=== PATIENT | female | born 1955 | race Caucasian/White ===

== ENCOUNTER → 2023-11-06 11:03 | Outpatient (REF) | payer MEDICARE, BC, SELFPAY | LOC: MRI 3T 11:03 | PROVIDERS: ATTENDING PHYSICIAN Radiology Radiation Oncology; FAMILY PHYSICIAN Family Medicine; OTHER PHYSICIAN Radiology Radiation Oncology | DX: C79.31 Secondary malignant neoplasm of brain (principal); C79.49 Secondary malignant neoplasm of other parts of nervous system | CPT/HCPCS: 70553; A9575 ==

== ENCOUNTER → 2023-11-24 12:49 | Outpatient (REF) | payer MEDICARE, BC, SELFPAY | LOC: RCS 12:49 | PROVIDERS: ATTENDING PHYSICIAN Internal Medicine Cardiovascular Disease; FAMILY PHYSICIAN Family Medicine; REFERRING PHYSICIAN Internal Medicine Hematology & Oncology | DX: I50.32 Chronic diastolic (congestive) heart failure (principal); C50.919 Malignant neoplasm of unspecified site of unspecified female breast; T45.1X5D Adverse effect of antineoplastic and immunosuppressive drugs, subsequent encounter | CPT/HCPCS: 93306; 93356 ==

== ENCOUNTER → 2024-03-13 10:31 | Outpatient (REF) | payer MEDICARE, BC, SELFPAY | LOC: RCS 10:31 | PROVIDERS: ATTENDING PHYSICIAN Internal Medicine Cardiovascular Disease; FAMILY PHYSICIAN Family Medicine | DX: I51.7 Cardiomegaly (principal); T45.1X5D Adverse effect of antineoplastic and immunosuppressive drugs, subsequent encounter | CPT/HCPCS: 93306; 93356 ==

== ENCOUNTER → 2024-03-20 11:21 | Outpatient (REF) | payer MEDICARE, BC, SELFPAY | LOC: PAVMRI 11:21 | PROVIDERS: ATTENDING PHYSICIAN Nurse Practitioner Family | DX: C79.31 Secondary malignant neoplasm of brain (principal); C79.49 Secondary malignant neoplasm of other parts of nervous system | CPT/HCPCS: 70553; A9575 ==

== ENCOUNTER → 2024-06-05 11:10 | Outpatient (REF) | payer MEDICARE, BC, SELFPAY | LOC: PAVMRI 11:10 | PROVIDERS: ATTENDING PHYSICIAN Radiology Radiation Oncology; FAMILY PHYSICIAN Family Medicine | DX: C79.31 Secondary malignant neoplasm of brain (principal) | CPT/HCPCS: 70553; A9575 ==

== ENCOUNTER → 2024-07-24 14:12 | Outpatient (REF) | payer MEDICARE, BC, SELFPAY | LOC: RCS 14:12 | PROVIDERS: ATTENDING PHYSICIAN Internal Medicine Cardiovascular Disease; FAMILY PHYSICIAN Family Medicine; REFERRING PHYSICIAN Internal Medicine Hematology & Oncology | DX: I51.7 Cardiomegaly (principal); T45.1X5D Adverse effect of antineoplastic and immunosuppressive drugs, subsequent encounter | CPT/HCPCS: 93306; 93356 ==

== ENCOUNTER → 2024-09-17 17:27 | Outpatient (REF) | payer MEDICARE, BC, SELFPAY | LOC: MRI 3T 17:27 | PROVIDERS: ATTENDING PHYSICIAN Radiology Radiation Oncology; FAMILY PHYSICIAN Family Medicine | DX: C79.31 Secondary malignant neoplasm of brain (principal) | CPT/HCPCS: 70553; A9575 ==

== ENCOUNTER → 2024-11-08 15:14 | Outpatient (REF) | payer MEDICARE, BC, SELFPAY | LOC: RCS 15:14 | PROVIDERS: ATTENDING PHYSICIAN Internal Medicine Hematology & Oncology; FAMILY PHYSICIAN Family Medicine | DX: C50.312 Malignant neoplasm of lower-inner quadrant of left female breast (principal); C78.00 Secondary malignant neoplasm of unspecified lung; C79.31 Secondary malignant neoplasm of brain; C79.51 Secondary malignant neoplasm of bone; R19.7 Diarrhea, unspecified; R25.2 Cramp and spasm; E87.6 Hypokalemia | CPT/HCPCS: 93306 ==

== ENCOUNTER → 2024-12-04 11:14 | Outpatient (REF) | payer MEDICARE, BC, SELFPAY | LOC: PAVMRI 11:14 | PROVIDERS: ATTENDING PHYSICIAN Nurse Practitioner Family; FAMILY PHYSICIAN Family Medicine | DX: C79.31 Secondary malignant neoplasm of brain (principal) | CPT/HCPCS: 70553; A9575 ==

== ENCOUNTER → 2025-02-13 14:16 | Outpatient (REF) | payer MEDICARE, BC, SELFPAY | LOC: RCS 14:16 | PROVIDERS: ATTENDING PHYSICIAN Internal Medicine Cardiovascular Disease; FAMILY PHYSICIAN Family Medicine | DX: C50.919 Malignant neoplasm of unspecified site of unspecified female breast (principal); T45.1X5D Adverse effect of antineoplastic and immunosuppressive drugs, subsequent encounter | CPT/HCPCS: 93306; 93356 ==

== ENCOUNTER → 2025-03-13 10:39 | Outpatient (REF) | payer MEDICARE, BC, SELFPAY | LOC: PAVMRI 10:39 | PROVIDERS: ATTENDING PHYSICIAN Radiology Radiation Oncology; FAMILY PHYSICIAN Family Medicine; REFERRING PHYSICIAN Internal Medicine Hematology & Oncology | DX: C79.31 Secondary malignant neoplasm of brain (principal) | CPT/HCPCS: 70553; A9575 ==